=== PATIENT | male | born 1980 | race Caucasian/White ===

== ENCOUNTER 2019-01-28 11:51 | Outpatient (CLI) | payer OTHER ==
--- NOTE | 2019-01-28 13:02 | XRay Report ---
XRAY LUMBAR SPINE WITH OBLIQUES 5 VIEWS: 01/28/19 11:51:00 CLINICAL: Lumbago with sciatica FINDINGS: Normal vertebral body height, alignment and disk spaces. Left neural foramina are narrowed at L1-2, L2-3 and L3-4. The right neural foramina are not as well demonstrated due to to suboptimal obliquity. Moderate multilevel facet joint sclerosis. The pedicles are intact. No fracture. Normal soft tissues. IMPRESSION: 1. No evidence of degenerative disc disease. 2. Multilevel facet joint arthropathy. 3. Left neural foraminal narrowing from L1-2 through L3-4 which may be clinically significant. 4. The right neural foramina are not optimally imaged.
== END 2019-01-28 11:52 | disposition home or self-care (01) ==
LOC: XRAY 11:51
PROVIDERS: ATTEND Internal Medicine
DX: M48.061 Spinal stenosis, lumbar region without neurogenic claudication (principal); M12.9 Arthropathy, unspecified
CPT/HCPCS: 72110

== ENCOUNTER 2019-01-29 08:37 | Outpatient (CLI) | payer OTHER ==
[2019-01-29 10:04] LABS: Hematocrit 46.7 % (35.5-45.6); Hemoglobin 16.2 gm/dl (11.8-15.2); Mean Corpuscular HGB Conc 35 % (32-34); Mean Corpuscular Volume 96 fl (84-94); Platelet Count 270 K/mm3 (140-440); Red Blood Count 4.85 M/mm3 (3.65-5.03); Red Cell Distribution Width 12.5 % (13.2-15.2)
[2019-01-29 10:17] LABS: Alanine Aminotransferase 19 units/L (7-56); Albumin 4.5 g/dL (3.9-5); BUN/Creatinine Ratio 15; Blood Urea Nitrogen 12 mg/dL (9-20); Calcium 8.8 mg/dL (8.4-10.2); LDL Cholesterol,Direct 153 mg/dL (50-130)
[2019-01-29 10:18] LABS: Chol/HDL Ratio 4.06 %; HDL Cholesterol 50 mg/dL (40-59); Hemolysis Index 7
== END 2019-01-29 08:38 | disposition home or self-care (01) ==
LOC: LAB 08:37
PROVIDERS: ATTEND Internal Medicine
DX: Z13.1 Encounter for screening for diabetes mellitus (principal); M54.40 Lumbago with sciatica, unspecified side
CPT/HCPCS: 36415; 80053; 80061; 82607; 83036; 84443; 85027